=== PATIENT | male | born 1960 | race African-American/Black ===

== ENCOUNTER 2016-06-03 15:13 | Emergency (ER) | payer OTHER ==
[~2016-06-03] VITALS: Ht 175.3 cm; Wt 77.1 kg
--- NOTE | ~2016-06-03 | EKG ---
[facility] [email or web address] [address] ELECTROCARDIOGRAM REPORT Name: VINCENT UMANA Room #: DEP Arnulfo#: [id number] Admission: 06/03/16 Attend Phys: Discharge: 06/03/16 Date of : 64 Report #: [id number] THIS REPORT FOR: //name// [facility] ED Test Date: 2016-06-03 Test Time: 15:55:10 Pat Name: VINCENT UMANA Department: Room: Gender: [employer]: MZOOK : 1960 Requested By: Gama Ye Order Number: [id number] MD: Sincere Pepper Measurements Intervals [place] Rate: 76 P: 73 WI: 132 QRS: 81 QRSD: 111 T: 33 QT: 378 QTc: 426 Interpretive Statements Sinus rhythm Borderline low voltage, extremity leads Incomplete right bundle branch block No previous ECG available for comparison Electronically Signed On 06-04-2016 7:59:40 SOMMELIER by Sincere Pepper [email or web address] <ELECTRONICALLY SIGNED> By: Sincere Pepper MD, [facility] 06/04/16 [id number] Sincere Pepper MD, FACC /EPI
[~2016-06-03 15:13] MED LIST: ACETAMINOPHEN-1 EAC1 PO; APAP/CODEINE ELI5 M1 PO; AUGMENTIN 875875 MG PO; AVELOX400 MG PO; AZITHROMYCIN 2250 MG PO; BACTRIM DS TAB1 EACH PO; CIMETIDINE 400400 MG PO; CIPROFLOXACIN500 M3 PO; FAMCYCLOVIR 50500 M1 PO; FLONASE 0.05%50 MCG NASAL; GENVOYA TABLET1 EACH PO; HYDROCODON-ACE1 EAC5 PO; IBUPROFEN 600600 M1 PO; ISENTRESS PO; ISENTRESS100 MG PO; LEXIVA700 MG PO; NORVIR100 MG PO; OSELB75 PO; PERCOCET 10-321 EACH PO; PROAIR HFA8.5 GM IH; PROBENECID500 MG PO; TRUVADA1 EAC1 PO; VALTREX 500 MG500 MG; VIREAD300 MG PO; ZYRTEC10 M2 PO; [UNRECOGNIZED DRUG - OTHER]; [UNRECOGNIZED DRUG - OTHER] IV; [UNRECOGNIZED DRUG - OTHER] PO
[2016-06-03 15:34] LABS: URINE BILIRUBIN NEGATIVE (Negative); URINE BLOOD NEGATIVE (Negative); URINE COLOR YELLOW; URINE GLUCOSE-RANDOM* NEGATIVE (Negative); URINE KETONES NEGATIVE (Negative); URINE LEUKOCYTES-REFLEX NEGATIVE (Negative); URINE PROTEIN (DIPSTICK) NEGATIVE (Negative); URINE UROBILINOGEN 0.2 E.U./dl (0.2-1.0)
[2016-06-03] MEDS ORDERED: TRETINOIN20 G2 TP (15:35)
[2016-06-03] MEDS ORDERED: OXYCODONE HCL15 MG PO (15:35)
[2016-06-03] MEDS ORDERED: LASIX 20 MG TAB20 MG PO (15:35)
[2016-06-03] MEDS ORDERED: SYMBICORT80 MCG/4.5 INH (15:35)
[2016-06-03 16:02] LABS: ABSOLUTE NEUTROPHILS 2.3 thou/uL (1.4-8.2); EOSINOPHILS 5.8 % (0.0-3.0); HEMATOCRIT 33.2 % (42.0-52.0); HEMOGLOBIN 11.3 gm/dL (14.0-18.0); LYMPHOCYTES 12.7 % (24.0-44.0); MCH 35.9 pg (26.0-34.0); MCHC 33.9 % (28.0-37.0); MCV 105.7 fL (80.0-100.0); MONOCYTES 6.4 % (1.0-8.0); PLATELET COUNT 245 thou/uL (150-400); POLYS 74.1 % (36.0-66.0); RBC 3.14 mil/uL (4.50-6.00); RDW 14.2 % (10.5-14.5); WBC 3.1 thou/uL (4.0-11.0)
[2016-06-03] MEDS ORDERED: PROSCAR 5MG TABL5 MG PO (16:02)
[2016-06-03 16:03] LABS: MANUAL DIFF NO
[2016-06-03 16:23] LABS: ALBUMIN 1.4 g/dL (3.4-5.0); CALCIUM 7.5 mg/dL (8.5-10.1); POTASSIUM 4.3 mmol/L (3.5-5.1); TOTAL BILIRUBIN 0.1 mg/dL (<0.1-1.0); TOTAL PROTEIN 4.1 g/dL (6.4-8.2)
[2016-06-03] MEDS ORDERED: DOXYCYCLINE 10100 MG PO (16:39)
[2016-06-03] MEDS ORDERED: PROVENTIL HFA6.7 G1 INH (16:39)
[2016-07-30] MEDS ORDERED: LAMISIL AF113 GM TP (21:34)
[2016-07-30] MEDS ORDERED: CORTIZONE-10 PL28 GM TP (21:34)
== END 2016-06-03 17:52 | disposition home or self-care (01) ==
LOC: ER 15:13
PROVIDERS: Physician Assistant
DX: J18.9 Pneumonia, unspecified organism (principal); R60.9 Edema, unspecified; E88.09 Other disorders of plasma-protein metabolism, not elsewhere classified; J90 Pleural effusion, not elsewhere classified; F17.210 Nicotine dependence, cigarettes, uncomplicated; F10.99 Alcohol use, unspecified with unspecified alcohol-induced disorder; Z88.8 Allergy status to other drugs, medicaments and biological substances; B20 Human immunodeficiency virus [HIV] disease